=== PATIENT | female | born 1980 | race Hispanic/Latino ===

== ENCOUNTER 2017-06-26 08:58 | Emergency (ER) | payer SELFPAY ==
[2017-06-26] MEDS ORDERED: TETANUS & DIPHTHERIA TOX,ADULT 0.5 ML VIAL ONE (09:56)
--- NOTE | 2017-06-26 10:14 | RAD REPORT ---
EXAM DESCRIPTION: RAD - Ankle Right 3 View - 06/26/2017 10:09 am CLINICAL HISTORY: Pain and swelling. COMPARISON: None. FINDINGS: No acute fracture seen. No dislocation evident. Posterior calcaneal spur noted.
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
[2017-06-26] MEDS ORDERED: SILVER SULFADIAZINE 1% 25 GM TOP ONE (10:50)
[2017-06-26] MEDS ORDERED: BACITRACIN OINTMENT 15 GM TUBE TOP ONE (11:00)
== END 2017-06-26 11:17 | disposition home or self-care (01) ==
LOC: ER 08:58
DX: T25.211A Burn of second degree of right ankle, initial encounter (principal); X19.XXXA Contact with other heat and hot substances, initial encounter; Y93.89 Activity, other specified; Y92.000 Kitchen of unspecified non-institutional (private) residence as the place of occurrence of the external cause; Z23 Encounter for immunization; I10 Essential (primary) hypertension
CPT/HCPCS: 90714; 99284

== ENCOUNTER 2019-08-21 16:42 | Emergency (ER) | payer SELFPAY ==
--- NOTE | 2019-08-21 21:30 | ER ---
Nurse's Notes [facility] Name: Chata Matute Age: 38 yrs Sex: Female : 1980 Arrival Date: 08/21/2019 Time: 16:57 Bed Waiting Private MD: Diagnosis: Presentation: 08/20 17:12 Chief complaint: Patient states: Chest pain started last night. A week ago, had the ca1 same episode of chest pain. Denies SOB, N/V. Every time I have cp I have high BP. last night BP was 149/87. Coronavirus screen: Proceed with normal triage. Patient denies a cough. Patient denies shortness of breath or difficulty breathing. Patient denies measured and/or subjective temperature greater than 100.4F prior to today's visit. Patient denies travel on a cruise ship or to a country the [facility] currently lists as an affected area. Patient denies contact with known and/or suspected case of COVID-19. Ebola Screen: Patient negative for fever greater than or equal to 101.5 degrees Fahrenheit, and additional compatible Ebola Virus Disease symptoms Patient denies exposure to infectious person. Patient denies travel to an Ebola-affected area in the 21 days before illness onset. No symptoms or risks identified at this time. Initial Sepsis Screen: Does the patient meet any 2 criteria? No. Patient's initial sepsis screen is negative. Does the patient have a suspected source of infection? No. Patient's initial sepsis screen is negative. Risk Assessment: Do you want to hurt yourself or someone else? Patient reports no desire to harm self or others. Onset of symptoms was August 21, 2019. 17:12 Method Of Arrival: Ambulatory ca1 17:12 Acuity: SHIRAZ 3 ca1 Historical: - Allergies: 17:16 No Known Allergies; ca1 - Home Meds: 17:16 lisinopril 10 mg Oral tab [Active]; ca1 - PMHx: 17:16 Hypertension; ca1 - PSHx: 17:16 None; ca1 - Immunization history:: Adult Immunizations up to date. - Social history:: Smoking status: Patient denies any tobacco usage or history of. Vital Signs: 17:12 BP 126 / 77; Pulse 64; Resp 18; Temp 97.5(TE); Pulse Ox 100% on R/A; Weight 73.94 kg; ca1 Height 5 ft. 3 in. (160.02 cm) (R); Pain 6/10; 17:12 Body Mass Index 28.87 (73.94 kg, 160.02 cm) ca1 ED Course: 16:57 Patient arrived in ED. mr 17:15 Triage completed. ca1 17:16 Arm band placed on. ca1 Administered Medications: No medications were administered Outcome: 21:29 Patient left the ED. dm5 Signatures: Emiliana Lopez RN RN dm5 Eula Eric mr Alvaro, Cara RN RN ca1
[2019-08-21 21:34] VITALS: BP 126/77; TEMP 97.5; O2SAT 100
== END 2019-08-21 21:29 | disposition left against medical advice (07) ==
LOC: ER 16:42
DX: R07.9 Chest pain, unspecified (principal); Z53.21 Procedure and treatment not carried out due to patient leaving prior to being seen by health care provider
CPT/HCPCS: 93005; 99281